=== PATIENT | male | born 1980 | race Caucasian/White ===

== ENCOUNTER 2020-08-25 12:36 | Emergency (ER) | payer OTHER ==
[~2020-08-25] VITALS: Ht 177.8 cm; Wt 83.9 kg
[~2020-08-25 12:36] MED LIST: ACET325; ALBU90OI INH; AZIT250 PO; BENZ100A PO; CEPH500 PO; CLIN150 PO; CLIN300 PO; CRUTCH4 USE; CYCL10 PO; Cleocin HCl300 MG PO; DIPATR PO; DOXY100 PO; GUAPHELA PO; HYDACE5 PO; HYDPAM50 PO; IBUP200 PO; IBUP600 PO; IBUP800; NAPR500 PO; Naprosyn500 MG PO; OMEP20ER PO; OXYACE5T PO; PRED20 PO; PROACE100 PO; PROCODE120 PO; PROM25 PO; RANI150 PO; RXCLIN PO; RXCYCL10 PO; RXHYDACE PO; RXHYDGUAS PO; RXNAPNA550 PO; RXOXYACE PO; RXPROACE PO; RXPROCODSY PO; RXSULTRIDS PO; SULTRIDS PO; Ultram50 MG PO
[2020-08-25] MEDS ORDERED: LIDO700A20 TOP (14:46)
[2020-08-25] MEDS ORDERED: CYCL10 PO (14:46)
== END 2020-08-25 15:25 | disposition home or self-care (01) ==
LOC: ER 12:36
DX: S29.012A Strain of muscle and tendon of back wall of thorax, initial encounter (principal); F17.210 Nicotine dependence, cigarettes, uncomplicated; X50.1XXA Overexertion from prolonged static or awkward postures, initial encounter; Y92.89 Other specified places as the place of occurrence of the external cause; Y99.0 Civilian activity done for income or pay
CPT/HCPCS: 96372; 99283-25; A9270; J1885